=== PATIENT | male | born 1980 | race African-American/Black ===

== ENCOUNTER 2018-05-14 11:56 | Inpatient (IN) | payer OTHER ==
[2018-05-14 12:36] VITALS: BMI 27.3
--- NOTE | 2018-05-14 15:02 | HP ---
COWS - Scale Resting Pulse: 0= [place] 80 or Below Sweatin=Flushed/Facial Moisture Restless Observation: 3= Extraneous Movement Pupil Size: 2= Moderately Dilated Bone or Joint Aches: 2= Severe Diffuse Aches Runny Nose/ Eye Tearin= Runny Nose/Eyes GI Upset > 30mins: 3= Vomiting/Diarrhea Tremor Observation: 2= Slight Tremor Visible Yawning Observation: 2= >3x During Session Anxiety or Irritability: 2=Irritable/Anxious Goose Flesh Skin: 0=Smooth Skin COWS Score: 20 CIWA Score - CIWA Score Nausea/Vomitin Muscle Tremors: 3 Anxiety: 3 Agitation: 3 Paroxysmal Sweats: 2 Orientation: 0-Oriented Tacttile Disturbances: 2-Mild Itch/Numbness/Burn Auditory Disturbances: 2-Mild Harshness/Frighten Visual Disturbances: 2-Mild Sensitivity Headache: 2-Mild CIWA-Ar Total Score: 22 Admission ROS BHS - HPI Chief Complaint: i need help to stop using heroin,xanax and cocaine Allergies/Adverse Reactions: Allergies Allergy/AdvReac Type Severity Reaction Status Date / Time No Known Allergies Allergy Verified 05/14/18 14:53 History of Present Illness: this 37 years old male with heroin,xanax and cocaine dependence,seeking detox, withdrawal symptom,last detox [facility] 02/28/16 to 03/02/16 seizure last 2017 nicotine dependence insomnia longest period of sobriety 8 months Exam Limitations: No Limitations - Ebola screening Have you traveled outside of the country in the last 21 days: No Have you had contact with anyone from an Ebola affected area: No Have you been sick,other than usual withdrawal symptoms: No Do you have a fever: No - Review of Systems Constitutional: Chills, Loss of Appetite, Malaise, Night Sweats, Changes in sleep, Weakness, Unintentional Wgt. Loss EENT: reports: Tearing, Nose Congestion Respiratory: reports: No Symptoms reported Cardiac: reports: No Symptoms Reported GI: reports: Diarrhea, Nausea, Vomiting, Abdominal cramping : reports: No Symptoms Reported Musculoskeletal: reports: Back Pain, Joint Pain, Muscle Pain, Joint Stiffness Integumentary: reports: Dryness Neuro: reports: Headache, Tremors Endocrine: reports: No Symptoms Reported Hematology: reports: No Symptoms Reported Psychiatric: reports: No Sypmtoms Reported, Judgement Intact, Mood/Affect Appropiate, Orientated x3 Patient History - Patient Medical History Hx Anemia: No Hx Asthma: No Hx Chronic Obstructive Pulmonary Disease (COPD): No Hx Cancer: No Hx Cardiac Disorders: No Hx Congestive Heart Failure: No Hx Hypertension: Yes (PREVIOUS HX OF ELEVATION BUT NO MED) Hx Hypercholesterolemia: No Hx Pacemaker: No HX Cerebrovascular Accident: No Hx Seizures: No Hx Dementia: No Hx Diabetes: No Hx Gastrointestinal Disorders: Yes (gastric by pass in 2008) Hx Liver Disease: No Hx Genitourinary Disorders: No Hx Sexually Transmitted Disorders: No Hx Renal Disease (ESRD): No Hx Thyroid Disease: No Hx Human Immunodeficiency Virus (HIV): No (NEGATIVE HX) Hx Hepatitis C: No Hx Depression: No Hx Suicide Attempt: No (DENIES) Hx Bipolar Disorder: No Hx Schizophrenia: No Other Medical History: no suicidal,no homicidal - Patient Surgical History Past Surgical History: Yes Hx Neurologic Surgery: No Hx Cataract Extraction: No Hx Cardiac Surgery: No Hx Lung Surgery: No Hx Breast Surgery: No Hx Breast Biopsy: No Hx Abdominal Surgery: Yes (GASTRIC BYPASS 2008) Hx Appendectomy: No Hx Cholecystectomy: No Hx Genitourinary Surgery: No Hx Section: No Hx Orthopedic Surgery: No Anesthesia Reaction: No - PPD History Previous Implant?: Yes Implanted On Prior [facility] Admission?: Yes Date: 04/28/16 Results: 0 MM PPD to be Administered?: Yes - Smoking Cessation Smoking history: Current every day smoker Have you smoked in the past 12 months: Yes Aproximately how many cigarettes per day: 20 Hx Chewing Tobacco Use: No Initiated information on smoking cessation: Yes 'Breaking Loose' booklet given: 05/14/18 - Substance & Tx. History Hx Alcohol Use: No Hx Substance Use: Yes Substance Use Type: Cocaine, Heroin, Tranquilizers Hx Substance Use Treatment: Yes ([facility] 09/20/16 to 01/08/18 ) - Substances Abused Heroin Route: Inhalation Frequency: Daily Amount used: 12-15 bag Age of first use: 35 Date of Last Use: 05/13/18 Alprazolam (Xanax) Route: Oral Frequency: Daily Amount used: 4mg Age of first use: 36 Date of Last Use: 05/13/18 Crack Route: Smoking Frequency: Daily Amount used: 1 bag Age of first use: 36 Date of Last Use: 05/13/18 Family Disease History - Family Disease History Family Disease History: Diabetes: Mother, Other: Grandparent (HTN) Admission Physical Exam [facility] - Vital Signs Vital Signs: Vital Signs - 24 hr 05/14/18 12:31 Temperature 96.6 F L Pulse Rate 78 Respiratory 18 Rate Blood Pressure 123/84 - Physical General Appearance: Yes: Moderate Distress, Tremorous, Irritable, Sweating, Anxious HEENTM: Yes: Normal ENT Inspection, [place], Pharynx Normal Respiratory: Yes: Lungs Clear, Normal Breath Sounds, No Respiratory Distress Neck: Yes: No masses,lesions,Nodules, Supple, Trachea in good position Breast: Yes: Within Normal Limits Cardiology: Yes: Within Normal Limits, Regular Rhythm, Regular Rate, S1, S2 Abdominal: Yes: Within Normal Limits, Normal Bowel Sounds, Flat, Soft Genitourinary: Yes: Within Normal Limits Back: Yes: Muscle Spasm Musculoskeletal: Yes: full range of Motion, Back pain, Muscle Pain Extremities: Yes: Tremors Neurological: Yes: epic cupid analyst II-XII NML intact, Fully Oriented, Alert, Motor Strength 5/5 Integumentary: Yes: Dry Lymphatic: Yes: Within Normal Limits - Diagnostic (1) Opioid dependence with withdrawal Current Visit: No Status: Acute (2) Cocaine dependence Current Visit: Yes Status: Acute (3) Nicotine dependence Current Visit: No Status: Acute Qualifiers: Nicotine product type: cigarettes Substance use status: uncomplicated Qualified Code(s): F17.210 - Nicotine dependence, cigarettes, uncomplicated (4) Uncomplicated sedative, hypnotic or anxiolytic withdrawal Current Visit: Yes Status: Acute (5) Weight loss Current Visit: Yes Status: Acute (6) History of gastric bypass Current Visit: Yes Status: Acute Cleared for Admission [facility] - Detox or Rehab [facility] Level of Care: Medically Managed Detox Regimen/Protocol: Methadone/Valium [facility] Breath Alcohol Content Breath Alcohol Content: 0 Urine Drug Screen - Results Drug Screen Negative: No Urine Drug Screen Results: PAOLA-Cocaine, OPI-Opiates, BZO-Benzodiazepines
[2018-05-14] MEDS ORDERED: guaiFENesin/D-METHORPHAN HB 10 ML UNIT-DOSE CUPS PO PRN (15:14)
[2018-05-14] MEDS ORDERED: ACETAMINOPHEN 325 MG TABLET (FP) PO PRN (15:14)
[2018-05-14] MEDS ORDERED: MAG HYDROX/AL HYDROX/SIMETH 30 ML UNIT-DOSE CUP PO PRN (15:14)
[2018-05-14] MEDS ORDERED: MENTHOL/PHENOL 1 EACH UD MM PRN (15:14)
[2018-05-14] MEDS ORDERED: MAGNESIUM CITRATE 300 ML BOTTLE PO PRN (15:14)
[2018-05-14] MEDS ORDERED: MAGNESIUM HYDROX 2400MG/30ML ORAL SUSPENSION 30 ML CUP PO PRN (15:14)
[2018-05-14] MEDS ORDERED: LOPERAMIDE HCL 2 MG CAPSULE PO PRN (15:14)
[2018-05-14] MEDS ORDERED: P-EPHED 60MG/TRIPROLIDI 2.5MG TABLET PO PRN (15:14)
[2018-05-14] MEDS ORDERED: IBUPROFEN 400 MG TABLET (FP) PO PRN (15:14)
[2018-05-14] MEDS ORDERED: METHADONE HCL 10 MG TABLET (FOR DETOX USE ONLY) PO ONE ×2 (15:50→23:00)
[2018-05-14] MEDS ORDERED: diazePAM 5 MG TABLET PO ONE (15:50)
[2018-05-14] MEDS ORDERED: METHADONE HCL 10 MG TABLET (FOR DETOX USE ONLY) ONE (18:22)
[2018-05-14] MEDS: NICOTINE 21 MG/24 HOURS TOPICAL PATCH TD SCH (18:28)
[2018-05-14] MEDS: diazePAM 5 MG TABLET PO SCH (22:29)
[2018-05-14] MEDS: THIAMINE HCL 100 MG TABLET (FP) PO SCH (22:29)
[2018-05-14] MEDS: MELATONIN 5 MG TABLETS PO PRN (22:30)
[2018-05-14 23:22] LABS: URINE APPEARANCE TURBID; URINE BILIRUBIN NEGATIVE (<2.0 mg/dL); URINE COLOR YELLOW; URINE GLUCOSE (UA) NEGATIVE (NEGATIVE); URINE KETONE NEGATIVE (NEGATIVE); URINE LEUK ESTERASE NEGATIVE (NEGATIVE); URINE NITRITE NEGATIVE (NEGATIVE); URINE UROBILINOGEN 4.0 E.U/dl mg/dL (0.2-1.0)
[2018-05-14 23:27] LABS: URINE PROTEIN 1+ (NEGATIVE)
[2018-05-14 23:31] LABS: URINE BACTERIA RARE /hpf (NONE SEEN); URINE MUCUS FEW
[2018-05-15] MEDS: diazePAM 5 MG TABLET PO SCH ×3 (06:08→22:41)
[2018-05-15] MEDS ORDERED: METHADONE HCL 10 MG TABLET (FOR DETOX USE ONLY) PO SCH (10:00)
[2018-05-15] MEDS: PRENATAL VITAMINS W/ FOLIC ACID TABLET (FP) PO SCH (10:10)
[2018-05-15] MEDS: diazePAM 5 MG TABLET PO PRN ×2 (10:10→15:35)
[2018-05-15] MEDS: NICOTINE 21 MG/24 HOURS TOPICAL PATCH TD SCH (10:10)
[2018-05-15 10:28] LABS: HEMATOCRIT 34.1 % (35.4-49); HEMOGLOBIN 11.3 GM/dL (11.7-16.9); MCH 30.6 pg (25.7-33.7); MCHC 33.2 g/dl (32.0-35.9); MEAN CELL VOLUME 92.1 fl (80-96); MEAN PLT VOLUME 7.5 fl (7.5-11.1); PLATELET COUNT 368 K/MM3 (134-434); WHITE BLOOD COUNT 4.4 K/mm3 (4.0-10.0)
[2018-05-15 10:38] LABS: CHLORIDE 106 mmol/L (98-107); POTASSIUM 4.2 mmol/L (3.5-5.1); SODIUM 141 mmol/L (136-145)
[2018-05-15 10:56] LABS: ALBUMIN 2.5 g/dl (3.4-5.0); ALK PHOS 107 U/L (45-117); ANION GAP 7 (8-16); BILIRUBIN,TOTAL 0.2 mg/dL (0.2-1.0); BLOOD UREA NITROGEN 14 mg/dL (7-18); CALCIUM 8.1 mg/dL (8.5-10.1); CO2 28 mmol/L (21-32); CREATININE 0.8 mg/dL (0.7-1.3); GLUCOSE,RANDOM 95 mg/dL (74-106); SGOT/AST 36 U/L (15-37); SGPT/ALT 35 U/L (12-78); TOT PROT 5.8 g/dl (6.4-8.2)
--- NOTE | 2018-05-15 11:37 | PN ---
[facility] CIWA - CIWA Score Nausea/Vomitin Muscle Tremors: 3 Anxiety: 3 Agitation: 3 Paroxysmal Sweats: 1-Minimal Palms Moist Orientation: 0-Oriented Tacttile Disturbances: 1-Very Mild Itch/Numbness Auditory Disturbances: 1-Very Mild Visual Disturbances: 0-None Headache: 2-Mild CIWA-Ar Total Score: 17 BHS COWS - Scale Resting Pulse: 0= [place] 80 or Below Sweatin= Chills/Flushing Restless Observation: 3= Extraneous Movement Pupil Size: 1= Pupils >than Normal Bone or Joint Aches: 2= Severe Diffuse Aches Runny Nose/ Eye Tearin= Runny Nose/Eyes GI Upset > 30mins: 2= Nausea/Diarrhea Tremor Observation of Outstretched Hands: 2= Slight Tremor Visible Yawning Observation: 1= 1-2x During Session Anxiety or Irritability: 2=Irritable/Anxious Goose Flesh Skin: 0=Smooth Skin COWS Score: 16 S Progress Note (SOAP) Subjective: alert,irritable,anxious,interrupted sleep,tremor,pain in the body and back, interrupted sleep Objective: 05/15/18 11:25 Vital Signs Temperature 99.0 F 05/15/18 11:17 Pulse Rate 74 05/15/18 11:17 Respiratory Rate 16 05/15/18 11:17 Blood Pressure 138/84 05/15/18 11:17 O2 Sat by Pulse Oximetry (%) ekg nsr,normal ecg. [id number] no chest pain,no sob,no dizziness Laboratory Last Values WBC 4.4 K/mm3 (4.0-10.0) 05/15/18 06:48 RBC 3.70 M/mm3 (4.00-5.60) L 05/15/18 06:48 Hgb 11.3 GM/dL (11.7-16.9) L 05/15/18 06:48 Hct 34.1 % (35.4-49) L D 05/15/18 06:48 MCV 92.1 fl (80-96) 05/15/18 06:48 MCH 30.6 pg (25.7-33.7) 05/15/18 06:48 MCHC 33.2 g/dl (32.0-35.9) 05/15/18 06:48 RDW 14.0 % (11.9-15.9) 05/15/18 06:48 Plt Count 368 K/MM3 (134-434) D 05/15/18 06:48 MPV 7.5 fl (7.5-11.1) D 05/15/18 06:48 Sodium 141 mmol/L (136-145) 05/15/18 06:48 Potassium 4.2 mmol/L (3.5-5.1) 05/15/18 06:48 Chloride 106 mmol/L (98-107) 05/15/18 06:48 Carbon Dioxide 28 mmol/L (21-32) 05/15/18 06:48 Anion Gap 7 (8-16) L 05/15/18 06:48 BUN 14 mg/dL (7-18) 05/15/18 06:48 Creatinine 0.8 mg/dL (0.7-1.3) 05/15/18 06:48 Creat Clearance w eGFR > 60 (>60) 05/15/18 06:48 Random Glucose 95 mg/dL (74-106) 05/15/18 06:48 Calcium 8.1 mg/dL (8.5-10.1) L 05/15/18 06:48 Total Bilirubin 0.2 mg/dL (0.2-1.0) 05/15/18 06:48 AST 36 U/L (15-37) D 05/15/18 06:48 ALT 35 U/L (12-78) D 05/15/18 06:48 Alkaline Phosphatase 107 U/L (45-117) 05/15/18 06:48 Total Protein 5.8 g/dl (6.4-8.2) L 05/15/18 06:48 Albumin 2.5 g/dl (3.4-5.0) L 05/15/18 06:48 Urine Color Yellow 05/14/18 Unknown Urine Appearance Turbid 05/14/18 Unknown Urine pH 5.0 (5.0-8.0) 05/14/18 Unknown Ur Specific [place] 1.031 (1.001-1.035) 05/14/18 Unknown Urine Protein 1+ (NEGATIVE) H 05/14/18 Unknown Urine Glucose (UA) Negative (NEGATIVE) 05/14/18 Unknown Urine Ketones Negative (NEGATIVE) 05/14/18 Unknown Urine Blood Negative (NEGATIVE) 05/14/18 Unknown Urine Nitrite Negative (NEGATIVE) 05/14/18 Unknown Urine Bilirubin Negative (<2.0 mg/dL) 05/14/18 Unknown Urine Urobilinogen 4.0 e.u/dl mg/dL (0.2-1.0) 05/14/18 Unknown Ur Leukocyte Esterase Negative (NEGATIVE) 05/14/18 Unknown Urine WBC (Auto) 200 /hpf (3-5) 05/14/18 Unknown Urine RBC (Auto) None /hpf (0-3) 05/14/18 Unknown Urine Bacteria Rare /hpf (NONE SEEN) 05/14/18 Unknown Urine Mucus Few 05/14/18 Unknown Assessment: 05/15/18 11:38 withdrawal symptom Plan: continue detox,repeat ua,urine for c/s r/o uti,bactrim ds 1 tab po bid
[2018-05-15] MEDS: SULFAMETHOXAZOLE/TRIMETHOPRIM 800MG/160MG D.S. TABLET PO SCH ×2 (13:02→22:39)
--- NOTE | 2018-05-15 13:14 | EKG ---
Test Reason : Blood Pressure : / mmHG Vent. Rate : 063 BPM Atrial Rate : 063 BPM P-R Int : 148 ms QRS Dur : 100 ms QT Int : 424 ms P-R-T Axes : 057 050 046 degrees QTc Int : 433 ms NORMAL SINUS RHYTHM NORMAL ECG NO PREVIOUS ECGS AVAILABLE Confirmed by MD CE, RHYS ([id number]) on 05/15/2018 1:13:52 PM Referred By: Confirmed By:RHYS ENCINAS MD
[2018-05-15 14:55] LABS: URINE APPEARANCE CLEAR; URINE BILIRUBIN NEGATIVE (<2.0 mg/dL); URINE COLOR YELLOW; URINE GLUCOSE (UA) NEGATIVE (NEGATIVE); URINE KETONE NEGATIVE (NEGATIVE); URINE LEUK ESTERASE NEGATIVE (NEGATIVE); URINE NITRITE NEGATIVE (NEGATIVE); URINE PROTEIN NEGATIVE (NEGATIVE); URINE UROBILINOGEN 4.0 E.U/dl mg/dL (0.2-1.0)
--- NOTE | 2018-05-15 15:01 | CONSULT ---
[facility] Psychiatric Consult - Data Date of interview: 05/15/18 Admission source: [facility] Identifying data: Patient is a 37 year old single male, father of one, donal , (denies receiving financial assistance , and is currently homeless. This is one of multiple admissions for patient. Pt. admitted to for opiate and benzodiazepine dependence. Substance Abuse History: Smoking Cessation. Smoking history: Current every day smoker. Have you smoked in the past 12 months: Yes. Aproximately how many cigarettes per day: 20. Hx Chewing Tobacco Use: No. Initiated information on smoking cessation: Yes. 'Breaking Loose' booklet given: 05/14/18. - Substance & Tx. History. Hx Alcohol Use: No. Hx Substance Use: Yes. Substance Use Type : Cocaine, Heroin, Tranquilizers. Hx Substance Use Treatment: Yes ([facility] to 01/08/18 ). - Substances Abused. Heroin. Route: Inhalation. Frequency: Daily. Amount used: 12-15 bag. Age of first use: 35. Date of Last Use: 05/13/18. Alprazolam (Xanax). Route: Oral. Frequency: Daily. Amount used: 4mg. Age of first use: 36. Date of Last Use: 05/13/18. Crack. Route : Smoking. Frequency: Daily. Amount used: 1 bag. Age of first use: 36. Date of Last Use: 05/13/18 Medical History: hypertension, gastric bypass in 2008 Psychiatric History: Patient denies h/o psychiatric hospitalizations, outpatient care, and suicide attempt. Physical/Sexual Abuse/Trauma History: Denies. Mental Status Exam - Mental Status Exam Alert and Oriented to: Time, Place, Person Cognitive Function: Good Patient Appearance: Well Groomed Mood: Hopeful, Euthymic Affect: Mood Congruent Patient Behavior: Appropriate, Cooperative Speech Pattern: Clear, Appropriate Voice Loudness: Normal Thought Process: Intact, Goal Oriented Thought Disorder: Not Present Hallucinations: Denies Suicidal Ideation: Denies Homicidal Ideation: Denies Insight/Judgement: Poor Sleep: Poorly Appetite: Fair Muscle strength/Tone: Normal Gait/Station: Normal Psychiatric Findings - Problem List ([place] 1, 2,3) (1) Cocaine dependence Current Visit: Yes Status: Acute (2) Nicotine dependence Current Visit: Yes Status: Chronic Qualifiers: Nicotine product type: cigarettes Substance use status: uncomplicated Qualified Code(s): F17.210 - Nicotine dependence, cigarettes, uncomplicated (3) Opioid dependence with withdrawal Current Visit: Yes Status: Acute (4) History of gastric bypass Current Visit: Yes Status: Acute (5) Uncomplicated sedative, hypnotic or anxiolytic withdrawal Current Visit: Yes Status: Acute (6) Insomnia Current Visit: No Status: Acute - Initial Treatment Plan Initial Treatment Plan: Psychoeducation provided. Detoxification in progress. Patient informed that melatonin 5mg is ordered. Observation.
[2018-05-15] MEDS: THIAMINE HCL 100 MG TABLET (FP) PO SCH (22:39)
[2018-05-15] MEDS: MELATONIN 5 MG TABLETS PO PRN (22:39)
[2018-05-16] MEDS: diazePAM 5 MG TABLET PO PRN ×3 (05:51→17:07)
[2018-05-16] MEDS: diazePAM 5 MG TABLET PO SCH ×2 (10:39→22:04)
[2018-05-16] MEDS: SULFAMETHOXAZOLE/TRIMETHOPRIM 800MG/160MG D.S. TABLET PO SCH ×2 (10:39→22:04)
[2018-05-16] MEDS: METHADONE HCL 5 MG TABLET (FOR DETOX USE ONLY) PO SCH (10:39)
[2018-05-16] MEDS: NICOTINE 21 MG/24 HOURS TOPICAL PATCH TD SCH (10:39)
[2018-05-16] MEDS: PRENATAL VITAMINS W/ FOLIC ACID TABLET (FP) PO SCH (10:39)
--- NOTE | 2018-05-16 11:16 | PN ---
[facility] CIWA - CIWA Score Nausea/Vomitin-No Nausea/No Vomiting Muscle Tremors: 3 Anxiety: 4-Mod. Anxious/Guarded Agitation: 3 Paroxysmal Sweats: 1-Minimal Palms Moist Orientation: 1-Uncertain about Date Tacttile Disturbances: 1-Very Mild Itch/Numbness Auditory Disturbances: 0-None Visual Disturbances: 0-None Headache: 0-None Present CIWA-Ar Total Score: 13 BHS COWS - Scale Resting Pulse: 0= [place] 80 or Below Sweatin= Chills/Flushing Restless Observation: 1= Difficult to Sit Still Pupil Size: 0= Normal to Room Light Bone or Joint Aches: 2= Severe Diffuse Aches Runny Nose/ Eye Tearin= Runny Nose/Eyes GI Upset > 30mins: 1= Stomach Cramp Tremor Observation of Outstretched Hands: 2= Slight Tremor Visible Yawning Observation: 2= >3x During Session Anxiety or Irritability: 2=Irritable/Anxious Goose Flesh Skin: 0=Smooth Skin COWS Score: 13 S Progress Note (SOAP) Subjective: anxiety restlessness irritable trouble sleep at night poor concentration Objective: 05/16/18 11:12 Vital Signs Temperature 97.4 F L 05/16/18 09:47 Pulse Rate 75 05/16/18 09:47 Respiratory Rate 18 05/16/18 09:47 Blood Pressure 128/75 05/16/18 09:47 O2 Sat by Pulse Oximetry (%) Laboratory Last Values WBC 4.4 K/mm3 (4.0-10.0) 05/15/18 06:48 RBC 3.70 M/mm3 (4.00-5.60) L 05/15/18 06:48 Hgb 11.3 GM/dL (11.7-16.9) L 05/15/18 06:48 Hct 34.1 % (35.4-49) L D 05/15/18 06:48 MCV 92.1 fl (80-96) 05/15/18 06:48 MCH 30.6 pg (25.7-33.7) 05/15/18 06:48 MCHC 33.2 g/dl (32.0-35.9) 05/15/18 06:48 RDW 14.0 % (11.9-15.9) 05/15/18 06:48 Plt Count 368 K/MM3 (134-434) D 05/15/18 06:48 MPV 7.5 fl (7.5-11.1) D 05/15/18 06:48 Sodium 141 mmol/L (136-145) 05/15/18 06:48 Potassium 4.2 mmol/L (3.5-5.1) 05/15/18 06:48 Chloride 106 mmol/L (98-107) 05/15/18 06:48 Carbon Dioxide 28 mmol/L (21-32) 05/15/18 06:48 Anion Gap 7 (8-16) L 05/15/18 06:48 BUN 14 mg/dL (7-18) 05/15/18 06:48 Creatinine 0.8 mg/dL (0.7-1.3) 05/15/18 06:48 Creat Clearance w eGFR > 60 (>60) 05/15/18 06:48 Random Glucose 95 mg/dL (74-106) 05/15/18 06:48 Calcium 8.1 mg/dL (8.5-10.1) L 05/15/18 06:48 Total Bilirubin 0.2 mg/dL (0.2-1.0) 05/15/18 06:48 AST 36 U/L (15-37) D 05/15/18 06:48 ALT 35 U/L (12-78) D 05/15/18 06:48 Alkaline Phosphatase 107 U/L (45-117) 05/15/18 06:48 Total Protein 5.8 g/dl (6.4-8.2) L 05/15/18 06:48 Albumin 2.5 g/dl (3.4-5.0) L 05/15/18 06:48 Urine Color Yellow 05/15/18 13:40 Urine Appearance Clear 05/15/18 13:40 Urine pH 6.0 (5.0-8.0) 05/15/18 13:40 Ur Specific [place] 1.025 (1.001-1.035) 05/15/18 13:40 Urine Protein Negative (NEGATIVE) 05/15/18 13:40 Urine Glucose (UA) Negative (NEGATIVE) 05/15/18 13:40 Urine Ketones Negative (NEGATIVE) 05/15/18 13:40 Urine Blood Negative (NEGATIVE) 05/15/18 13:40 Urine Nitrite Negative (NEGATIVE) 05/15/18 13:40 Urine Bilirubin Negative (<2.0 mg/dL) 05/15/18 13:40 Urine Urobilinogen 4.0 e.u/dl mg/dL (0.2-1.0) 05/15/18 13:40 Ur Leukocyte Esterase Negative (NEGATIVE) 05/15/18 13:40 Urine WBC (Auto) 200 /hpf (3-5) 05/14/18 Unknown Urine RBC (Auto) None /hpf (0-3) 05/14/18 Unknown Urine Bacteria Rare /hpf (NONE SEEN) 05/14/18 Unknown Urine Mucus Few 05/14/18 Unknown RPR Titer Nonreactive (NONREACTIVE) 05/15/18 06:48 lab noted Assessment: 05/16/18 11:15 withdrawal sx Plan: continue detox
[2018-05-16] MEDS ORDERED: LORATADINE 10 MG TABLET PO ONE (12:14)
--- NOTE | 2018-05-16 16:52 | PN ---
S Progress Note Note: Psychiatric nurse practitoner note: Pt. accepting melatonin 5mg but continues to report poor sleep. Will increase melatonin to 8mg. Verbal consent given.
[2018-05-16] MEDS ORDERED: MELATONIN 5 MG TABLETS PO PRN (22:00)
[2018-05-16] MEDS: THIAMINE HCL 100 MG TABLET (FP) PO SCH (22:04)
[2018-05-16] MEDS: MELATONIN 5 MG, MELATONIN 3 MG PO PRN (22:08)
[2018-05-17] MEDS: diazePAM 5 MG TABLET PO PRN ×2 (05:30→14:29)
[2018-05-17] MEDS: hydrOXYzine PAMOATE 50 MG CAPSULE (FP) PO PRN ×2 (10:15→20:14)
[2018-05-17] MEDS: NICOTINE 21 MG/24 HOURS TOPICAL PATCH TD SCH (10:16)
[2018-05-17] MEDS: PRENATAL VITAMINS W/ FOLIC ACID TABLET (FP) PO SCH (10:16)
[2018-05-17] MEDS: SULFAMETHOXAZOLE/TRIMETHOPRIM 800MG/160MG D.S. TABLET PO SCH ×2 (10:16→22:22)
[2018-05-17] MEDS: diazePAM 5 MG TABLET PO SCH ×2 (10:16→22:22)
[2018-05-17] MEDS: METHADONE HCL 5 MG TABLET (FOR DETOX USE ONLY) PO SCH (10:16)
--- NOTE | 2018-05-17 10:37 | PN ---
BHS Progress Note (SOAP) Subjective: joints pain sweat tremor anxiety trouble sleep at night Objective: 05/17/18 10:36 Vital Signs Temperature 97.9 F 05/17/18 09:19 Pulse Rate 72 05/17/18 09:19 Respiratory Rate 18 05/17/18 09:19 Blood Pressure 127/77 05/17/18 09:19 O2 Sat by Pulse Oximetry (%) Laboratory Last Values WBC 4.4 K/mm3 (4.0-10.0) 05/15/18 06:48 RBC 3.70 M/mm3 (4.00-5.60) L 05/15/18 06:48 Hgb 11.3 GM/dL (11.7-16.9) L 05/15/18 06:48 Hct 34.1 % (35.4-49) L D 05/15/18 06:48 MCV 92.1 fl (80-96) 05/15/18 06:48 MCH 30.6 pg (25.7-33.7) 05/15/18 06:48 MCHC 33.2 g/dl (32.0-35.9) 05/15/18 06:48 RDW 14.0 % (11.9-15.9) 05/15/18 06:48 Plt Count 368 K/MM3 (134-434) D 05/15/18 06:48 MPV 7.5 fl (7.5-11.1) D 05/15/18 06:48 Sodium 141 mmol/L (136-145) 05/15/18 06:48 Potassium 4.2 mmol/L (3.5-5.1) 05/15/18 06:48 Chloride 106 mmol/L (98-107) 05/15/18 06:48 Carbon Dioxide 28 mmol/L (21-32) 05/15/18 06:48 Anion Gap 7 (8-16) L 05/15/18 06:48 BUN 14 mg/dL (7-18) 05/15/18 06:48 Creatinine 0.8 mg/dL (0.7-1.3) 05/15/18 06:48 Creat Clearance w eGFR > 60 (>60) 05/15/18 06:48 Random Glucose 95 mg/dL (74-106) 05/15/18 06:48 Calcium 8.1 mg/dL (8.5-10.1) L 05/15/18 06:48 Total Bilirubin 0.2 mg/dL (0.2-1.0) 05/15/18 06:48 AST 36 U/L (15-37) D 05/15/18 06:48 ALT 35 U/L (12-78) D 05/15/18 06:48 Alkaline Phosphatase 107 U/L (45-117) 05/15/18 06:48 Total Protein 5.8 g/dl (6.4-8.2) L 05/15/18 06:48 Albumin 2.5 g/dl (3.4-5.0) L 05/15/18 06:48 Urine Color Yellow 05/15/18 13:40 Urine Appearance Clear 05/15/18 13:40 Urine pH 6.0 (5.0-8.0) 05/15/18 13:40 Ur Specific [place] 1.025 (1.001-1.035) 05/15/18 13:40 Urine Protein Negative (NEGATIVE) 05/15/18 13:40 Urine Glucose (UA) Negative (NEGATIVE) 05/15/18 13:40 Urine Ketones Negative (NEGATIVE) 05/15/18 13:40 Urine Blood Negative (NEGATIVE) 05/15/18 13:40 Urine Nitrite Negative (NEGATIVE) 05/15/18 13:40 Urine Bilirubin Negative (<2.0 mg/dL) 05/15/18 13:40 Urine Urobilinogen 4.0 e.u/dl mg/dL (0.2-1.0) 05/15/18 13:40 Ur Leukocyte Esterase Negative (NEGATIVE) 05/15/18 13:40 Urine WBC (Auto) 200 /hpf (3-5) 05/14/18 Unknown Urine RBC (Auto) None /hpf (0-3) 05/14/18 Unknown Urine Bacteria Rare /hpf (NONE SEEN) 05/14/18 Unknown Urine Mucus Few 05/14/18 Unknown RPR Titer Nonreactive (NONREACTIVE) 05/15/18 06:48 lab noted Assessment: 05/17/18 10:37 withdrawal sx Plan: continue detox
[2018-05-17] MEDS: THIAMINE HCL 100 MG TABLET (FP) PO SCH (22:22)
[2018-05-17] MEDS: MELATONIN 5 MG, MELATONIN 3 MG PO PRN (22:23)
[2018-05-18] MEDS ORDERED: METHADONE HCL 10 MG TABLET (FOR DETOX USE ONLY) PO SCH (10:00)
[2018-05-18] MEDS ORDERED: diazePAM 5 MG TABLET PO SCH (10:00)
[2018-05-18] MEDS: SULFAMETHOXAZOLE/TRIMETHOPRIM 800MG/160MG D.S. TABLET PO SCH ×2 (10:33→22:08)
[2018-05-18] MEDS: PRENATAL VITAMINS W/ FOLIC ACID TABLET (FP) PO SCH (10:33)
[2018-05-18] MEDS: NICOTINE 21 MG/24 HOURS TOPICAL PATCH TD SCH (10:35)
--- NOTE | 2018-05-18 10:53 | PN ---
S Progress Note (SOAP) Subjective: alert,interrupted sleep Objective: 05/18/18 10:52 Vital Signs Temperature 97.5 F L 05/18/18 06:10 Pulse Rate 59 L 05/18/18 06:10 Respiratory Rate 19 05/18/18 06:10 Blood Pressure 90/58 05/18/18 06:10 O2 Sat by Pulse Oximetry (%) Assessment: 05/18/18 10:52 withdrawal symptom Plan: continue detox,discharge in am
--- NOTE | 2018-05-18 10:55 | PN ---
BHS Progress Note Note: urine for c/s no growth obtained
[2018-05-18] MEDS ORDERED: LORATADINE 10 MG TABLET PO ONE (11:20)
[2018-05-18] MEDS: hydrOXYzine PAMOATE 50 MG CAPSULE (FP) PO PRN (14:51)
[2018-05-18] MEDS: THIAMINE HCL 100 MG TABLET (FP) PO SCH (22:08)
[2018-05-18] MEDS: MELATONIN 5 MG, MELATONIN 3 MG PO PRN (22:30)
[2018-05-19] MEDS ORDERED: METHADONE HCL 5 MG TABLET (FOR DETOX USE ONLY) PO SCH (06:00)
[2018-05-19] MEDS: hydrOXYzine PAMOATE 50 MG CAPSULE (FP) PO PRN (06:00)
[2018-05-19 06:27] VITALS: TEMP 97.9
[2018-05-19 09:10] VITALS: BP 121/77; PULSE 64
[2018-05-19] MEDS: PRENATAL VITAMINS W/ FOLIC ACID TABLET (FP) PO SCH (09:17)
[2018-05-19] MEDS: SULFAMETHOXAZOLE/TRIMETHOPRIM 800MG/160MG D.S. TABLET PO SCH (09:17)
[2018-05-19] MEDS ORDERED: LORATADINE 10 MG TABLET PO SCH (10:00)
--- NOTE | 2018-05-19 10:08 | PN ---
S Progress Note (SOAP) Subjective: alert,no complaint Objective: 05/19/18 10:07 Vital Signs Temperature 97.9 F 05/19/18 09:10 Pulse Rate 64 05/19/18 09:10 Respiratory Rate 18 05/19/18 09:10 Blood Pressure 121/77 05/19/18 09:10 O2 Sat by Pulse Oximetry (%) Assessment: 05/19/18 10:07 detox completed,no withdrawal symptom Plan: discharge today,follow up with after care program as arrangement
--- NOTE | 2018-05-19 10:12 | DS ---
[facility] Detox Discharge Summary Admission Date: 05/14/18 Discharge Date: 05/19/18 - History Present History: Alcohol Dependence, Cocaine Dependence, Opioid Dependence Additional Comments: patient did not want to go to rehab,changing his mind Pertinent Past History: nicotine dependence weight loss history of gastric bypass - Physical Exam Results Vital Signs: Vital Signs Temperature 97.9 F 05/19/18 09:10 Pulse Rate 64 05/19/18 09:10 Respiratory Rate 18 05/19/18 09:10 Blood Pressure 121/77 05/19/18 09:10 O2 Sat by Pulse Oximetry (%) Pertinent Admission Physical Exam Findings: withdrawal signs and symptom - Treatment Hospital Course: Detox Protocol Followed, Detoxed Safely, Responded well, Discharged Condition Good, Rehab Referral Accepted Patient has Accepted a Re[facility] Referral to: [facility] - Medication Discharge Medications: Ambulatory Orders NK [No Known Home Medication] 04/26/16 - Diagnosis (1) Opioid dependence with withdrawal Current Visit: Yes Status: Acute (2) Cocaine dependence Current Visit: Yes Status: Acute (3) Nicotine dependence Current Visit: Yes Status: Chronic Qualifiers: Nicotine product type: cigarettes Substance use status: uncomplicated Qualified Code(s): F17.210 - Nicotine dependence, cigarettes, uncomplicated (4) Uncomplicated sedative, hypnotic or anxiolytic withdrawal Current Visit: Yes Status: Acute (5) Weight loss Current Visit: Yes Status: Acute (6) History of gastric bypass Current Visit: Yes Status: Acute (7) UTI (urinary tract infection) Current Visit: Yes Status: Acute - AMA Did Patient Leave Against Medical Advice: No
== END 2018-05-19 09:18 | disposition home or self-care (01) | DRG 773 ==
LOC: YASAS 11:56 → Y6N 15:36
PROVIDERS: ADMIT Surgery; ATTEND Surgery
PROC: HZ2ZZZZ Detoxification Services for Substance Abuse Treatment (ICD-10-PCS; principal; 2018-05-14)
DX: F11.23 Opioid dependence with withdrawal (principal); F13.230 Sedative, hypnotic or anxiolytic dependence with withdrawal, uncomplicated; F14.20 Cocaine dependence, uncomplicated; F17.210 Nicotine dependence, cigarettes, uncomplicated; G47.00 Insomnia, unspecified; N39.0 Urinary tract infection, site not specified; I10 Essential (primary) hypertension; R63.4 Abnormal weight loss; Z68.27 Body mass index [BMI] 27.0-27.9, adult; Z98.84 Bariatric surgery status
CPT/HCPCS: 36415; 80053; 81003; 81015; 85027; 86593; 87086; 93005; 93010